=== PATIENT | male | born 1945 | race Caucasian/White ===

== ENCOUNTER 2024-10-18 09:57 | Outpatient (RCR) | payer MEDICARE, OTHER, SELFPAY | END 2024-10-18 23:59 | disposition home or self-care (01) | LOC: RPT 09:57 | PROVIDERS: ATTENDING PHYSICIAN Nurse Practitioner Family | DX: M54.30 Sciatica, unspecified side (principal); M54.51 Vertebrogenic low back pain; Z73.6 Limitation of activities due to disability; R26.89 Other abnormalities of gait and mobility | CPT/HCPCS: 97010; 97110; 97140; 97162 ==

== ENCOUNTER 2024-11-16 10:01 | Outpatient (RCR) | payer MEDICARE, OTHER, SELFPAY | END 2024-11-16 23:59 | disposition home or self-care (01) | LOC: RPT 10:01 | PROVIDERS: ATTENDING PHYSICIAN Nurse Practitioner Family | DX: M54.30 Sciatica, unspecified side (principal); M54.51 Vertebrogenic low back pain; Z73.6 Limitation of activities due to disability; R26.89 Other abnormalities of gait and mobility | CPT/HCPCS: 97010; 97110; 97140 ==

== ENCOUNTER 2024-11-20 09:51 | Outpatient (RCR) | payer MEDICARE, OTHER, SELFPAY | END 2024-11-20 23:59 | disposition home or self-care (01) | LOC: RPT 09:51 | PROVIDERS: ATTENDING PHYSICIAN Nurse Practitioner Family | DX: M54.51 Vertebrogenic low back pain (principal); M54.30 Sciatica, unspecified side; Z73.6 Limitation of activities due to disability; R26.89 Other abnormalities of gait and mobility | CPT/HCPCS: 97110 ==

== ENCOUNTER → 2024-12-31 12:04 | Outpatient (REF) | payer MEDICARE, OTHER, SELFPAY | LOC: MRI 3T 12:04 | PROVIDERS: ATTENDING PHYSICIAN Specialist; FAMILY PHYSICIAN Internal Medicine | DX: R97.20 Elevated prostate specific antigen [PSA] (principal) | CPT/HCPCS: 72197; A9575 ==

== ENCOUNTER → 2025-04-01 11:47 | Outpatient (REF) | payer MEDICARE, OTHER, SELFPAY | LOC: MRI 3T 11:47 | PROVIDERS: ATTENDING PHYSICIAN Specialist; FAMILY PHYSICIAN Internal Medicine | DX: R97.20 Elevated prostate specific antigen [PSA] (principal) | CPT/HCPCS: 72197; A9575 ==